=== PATIENT | male | born 1945 | race Caucasian/White ===

== ENCOUNTER 2019-05-17 14:52 | Observation (INO) ==
--- NOTE | 2019-05-17 15:46 | Emergency Department Note ---
Disposition Clinical Impression: Near syncope, Shortness of breath, TOTOIE (acute kidney injury) Hypotension Qualifiers: Hypotension type: unspecified hypotension type Qualified Code(s): I95.9 - Hypotension, unspecified Disposition: Admitted As Inpatient Condition: Good Time of Disposition: 20:45 General Adult HPI - General Chief complaint: ED Shortness of Breath/Dyspnea Stated complaint: low bp Time Seen by Provider: 05/17/19 15:13 Source: patient Nursing Notes Reviewed: Yes Vital Signs Reviewed: Yes - History of Present Illness HPI Narrative: 73-year-old male with history of hypertension, hyperlipidemia, diabetes who presents emergency Department with complaints of dizziness and shortness of breath. The patient states he has had long-standing shortness of breath for the past couple of weeks but he has had lightheadedness over the last 2 days. He co ntinues to have episodes of near syncope. Over the past several days he has had multiple episodes of significant diaphoresis, lightheadedness and shortness of breath which took approximately 15 minutes to dissipate after rest. He denied any chest pain at that time. He has intermittent diarrhea which he attributes to his metformin but otherwise denies any nausea, vomiting, current abdominal pain, headache, numbness or tingling. Pain Scale: 0 - Related Data Allergies Allergy/AdvReac Type Severity Reaction Status Date / Time No Known Allergies Allergy Verified 05/17/19 15:37 Review of Systems: ROS per history of present illness, all other systems reviewed and negative or normal. All systems ED: reviewed and negative except as stated. Review of Systems: As Per HPI Past Medical History - Past Medical History Attestation: Yes The following information was validated with the patient. Medical history: Reports: diabetes, hyperlipidemia - Social History Smoking Status: Never smoker Smokeless Tobacco Status: No Alcohol use: Reports: rarely Drug use: Reports: none Physical Exam General: Conversant. No apparent distress. Follow commands. Appears stated age. Neck: No JVD. Trachea midline. Neck supple. Eyes: PERRL. No scleral icterus. HENT: Normocephalic and atraumatic. Moist mucus membranes. Cardiovascular: Regular rate and rhythm. Normal S1 and S2. No murmurs appreciated. Normal capillary refill. Extremities well perfused with 2+ distal pulses bilaterally. No edema. Pulmonary: Normal and equal breath sounds bilaterally, anteriorly and posteriorly. No wheezes, rales, or rhonchi. Not in respiratory distress. Speaks in full sentences. Abdomen: Soft, nondistended, and tontender. No bruits or masses. No guarding. Neuro:Alert and oriented to person, place, and time. CN II-XII tested and grossly intact. No hemineglect. Speech is fluid and without slurring. There is mild flattening of the right nasolabial fold but states this is chronic and unchanged Sensory: Sensation intact to light touch in all extremities. Motor: Normal tone and bulk. No pronator drift. 5/5 strength in LUE 5/5 strength in RUE 5/5 strength in LLE 5/5 strength in RLE Skin: No rashes noted on visualized skin. Musculoskeletal: No bony abnormalities visualized. Moves all extremities. Psych: Normal mood. Pleasant. Makes appropriate eye contact. Course Vital Signs Temperature 97.7 F 05/17/19 14:54 Pulse Rate 98 05/17/19 14:54 Respiratory Rate 18 05/17/19 14:54 Blood Pressure 104/70 05/17/19 14:54 O2 Sat by Pulse Oximetry 95 05/17/19 14:54 Temperature 97.7 F 05/17/19 15:26 Pulse Rate 91 05/17/19 21:23 Respiratory Rate 18 05/17/19 21:23 Blood Pressure 137/82 05/17/19 21:23 O2 Sat by Pulse Oximetry 96 05/17/19 21:23 Oxygen Delivery Oxygen Delivery Room Air Medical Decision Making - [facility] Narrative Medical decision making narrative: 73-year-old male with history of hypertension, hyperlipidemia who presents the emergency department with complaints of near syncope several episodes as well as shortness of breath. The patient is difficult to obtain a history from and makes light of his issues therefore obtain history obtained predominantly by his . He was sent to the emergency department secondary to low blood pressures in the 90s at outside urgent care. his vital signs are stable upon arrival, blood pressure in the 110s systolic. Laboratory evaluation shows no significant leukocytosis or anemia. The patient has elevated creatinine which is unsure if this is the patient's baseline but he denies any history of CKD. The patient has no urinary tract infection. Chest x-ray shows no acute focal consolidation. CT head shows no evidence of acute intracranial pathology. Given the patient's lack of close follow-up as an outpatient and reluctance coming to physicians do believe he warrants further evaluation especially given his symptoms sound cardiac in origin. Discussed case with on-call hospitalist Dr. Rao who agrees with plan for admission and accepts the patient to the inpatient service. Patient agrees with and understands course of treatment plan including plan for admission. All questions answered. - Medical Records Medical records reviewed: Yes I reviewed the patient's medical records. - Lab Data Lab results reviewed: Yes I reviewed the patient's lab results. Result diagrams: 05/17/19 15:47 05/17/19 15:47 Lab Results 05/17/19 05/17/19 05/17/19 Range/Units 15:47 15:47 17:10 WBC 10.0 (4.3-11.1) K/mcL RBC 4.89 (4.19-5.50) M/mcL Hgb 15.0 (12.9-16.9) g/dL Hct 44.5 (37.5-50.1) % MCV 91.0 (83.0-100.0) fL MCH 30.7 (28.0-33.3) pg MCHC 33.7 (31.6-35.5) g/dL RDW 12.9 (11.5-14.5) % Plt Count 268 (140-400) K/mcL MPV 10.2 (9.4-12.4) fL Immature Gran % 0.8 (0-4) % Seg Neutrophils % 64.7 % Lymphocytes % 20.8 % Monocytes % 11.0 % Eosinophils % 2.1 % Basophils % 0.6 % Neutrophils # 6.5 (1.6-8.9) K/mcL Lymphocytes # 2.1 (0.6-4.6) K/mcL Monocytes # 1.1 (0.0-1.3) K/mcL Eosinophils # 0.2 (0.0-0.6) K/mcL Basophils # 0.1 (0.0-0.2) K/mcL Sodium 138 (136-145) mEq/L Potassium 4.4 (3.5-5.1) mEq/L Chloride 103 (98-107) mEq/L Carbon Dioxide 24 (23-29) mEq/L BUN 38 H (8-23) mg/dL Creatinine 1.99 H (0.70-1.30) mg/dL Est GFR ( Amer) 40 L (> 60) Est GFR (Non-Af Amer) 33 L (> 60) BUN/Creatinine Ratio 19 (6-26) Glucose 139 H (70-105) mg/dL Calculated Osmolality 297 (280-300) Calcium 10.4 H (8.6-10.3) mg/dL Magnesium 1.7 (1.6-2.6) mg/dL Troponin I 0.03 (< 0.04) ng/mL Urine Color Yellow (Yellow) Urine Clarity Clear (Clear) Urine pH 5.5 (5.0-8.0) pH Units Ur Specific [place] 1.030 H (1.010-1.025) Urine Protein Trace (Neg-Trace) mg/dL Urine Glucose (UA) 250 H (Normal) mg/dL Urine Ketones Negative (Negative) mg/dL Urine Blood Negative (Negative) Urine Nitrite Negative (Negative) Urine Bilirubin Small H (Negative) Urine Urobilinogen Normal (Normal) mg/dL Ur Leukocyte Esterase Trace H (Negative) Urine Microscopic RBC 0-3 (0-3) per hpf Urine Microscopic WBC 3-5 H (0-3) per hpf Ur Squamous Epith Cells Few (None-Few) per lpf Urine Bacteria None Seen (None-Few) per hpf Hyaline Casts Many H (None-Few) per lpf Ur Culture Indicated? YES A (NO) Specimen Rejected 05/17/19 Range/Units 17:10 WBC (4.3-11.1) K/mcL RBC (4.19-5.50) M/mcL Hgb (12.9-16.9) g/dL Hct (37.5-50.1) % MCV (83.0-100.0) fL MCH (28.0-33.3) pg MCHC (31.6-35.5) g/dL RDW (11.5-14.5) % Plt Count (140-400) K/mcL MPV (9.4-12.4) fL Immature Gran % (0-4) % Seg Neutrophils % % Lymphocytes % % Monocytes % % Eosinophils % % Basophils % % Neutrophils # (1.6-8.9) K/mcL Lymphocytes # (0.6-4.6) K/mcL Monocytes # (0.0-1.3) K/mcL Eosinophils # (0.0-0.6) K/mcL Basophils # (0.0-0.2) K/mcL Sodium (136-145) mEq/L Potassium (3.5-5.1) mEq/L Chloride (98-107) mEq/L Carbon Dioxide (23-29) mEq/L BUN (8-23) mg/dL Creatinine (0.70-1.30) mg/dL Est GFR ( Amer) (> 60) Est GFR (Non-Af Amer) (> 60) BUN/Creatinine Ratio (6-26) Glucose (70-105) mg/dL Calculated Osmolality (280-300) Calcium (8.6-10.3) mg/dL Magnesium (1.6-2.6) mg/dL Troponin I (< 0.04) ng/mL Urine Color (Yellow) Urine Clarity (Clear) Urine pH (5.0-8.0) pH Units Ur Specific [place] (1.010-1.025) Urine Protein (Neg-Trace) mg/dL Urine Glucose (UA) (Normal) mg/dL Urine Ketones (Negative) mg/dL Urine Blood (Negative) Urine Nitrite (Negative) Urine Bilirubin (Negative) Urine Urobilinogen (Normal) mg/dL Ur Leukocyte Esterase (Negative) Urine Microscopic RBC (0-3) per hpf Urine Microscopic WBC (0-3) per hpf Ur Squamous Epith Cells (None-Few) per lpf Urine Bacteria (None-Few) per hpf Hyaline Casts (None-Few) per lpf Ur Culture Indicated? (NO) Specimen Rejected Miscellaneous - Radiology Data Radiology results reviewed: Yes I reviewed the patient's radiology results. Chest X-Ray 05/17/19 15:33 IMPRESSION: No acute process. D/ / Max Aguilera MD / Max Aguilera MD Interpreting Provider: Max Aguilera MD - EKG Data EKG #1 EKG attestation: Yes I reviewed and interpreted this EKG. EKG results narrative: Normal sinus rhythm rate of 96. Normal axis. Normal intervals no acute ischemic changes. EKG also interpreted by myself Dr. Mae attending physician. Attestation Statement - Attestation Attestation: Dr. Mae note: Patient seen in conjunction with resident Dr. Vivas; please see her charting for complete documentation. Spent [id number] time with the patient and agree with the patient's treatment and disposition. No symptoms at this time. EKG and blood work unremarkable for acute coronary injury. Exertional dyspnea and diaphoresis twice in the last 3 days. Also vague lightheadedness and being off balance when standing from seated. No symptoms in the ER. Admitted and stabilized improved condition
[2019-05-17 16:07] LABS: Basophils # 0.1 K/mcL (0.0-0.2); Basophils % 0.6 %; Eosinophils # 0.2 K/mcL (0.0-0.6); Eosinophils % 2.1 %; Hematocrit 44.5 % (37.5-50.1); Immature Granulocytes % 0.8 % (0-4); Lymphocytes # 2.1 K/mcL (0.6-4.6); Lymphocytes % 20.8 %; Mean Corpuscular HGB Conc 33.7 g/dL (31.6-35.5); Mean Corpuscular Hemoglobin 30.7 pg (28.0-33.3); Mean Platelet Volume 10.2 fL (9.4-12.4); Monocytes # 1.1 K/mcL (0.0-1.3); Neutrophils # 6.5 K/mcL (1.6-8.9); Platelet Count 268 K/mcL (140-400); Red Blood Count 4.89 M/mcL (4.19-5.50); Red Cell Distribution Width 12.9 % (11.5-14.5); Segmented Neutrophils % 64.7 %
[2019-05-17] MEDS ORDERED: 0.9 % Sodium Chloride 1,000 ML IVC STA (16:24)
[2019-05-17 16:29] LABS: Calcium 10.4 mg/dL (8.6-10.3); Magnesium 1.7 mg/dL (1.6-2.6); Potassium 4.4 mEq/L (3.5-5.1); Troponin I 0.03 ng/mL (< 0.04)
[2019-05-17 17:29] LABS: Bilirubin,Urine Small (Negative); Blood,Urine Negative (Negative); Clarity,Urine Clear (Clear); Color,Urine Yellow (Yellow); Glucose,Urine (UA) 250 mg/dL (Normal); Ketones,Urine Negative (Negative); Leukocyte Esterase,Urine Trace (Negative); Nitrite,Urine Negative (Negative); PH,Urine 5.5 pH Units (5.0-8.0); Protein,Urine Trace mg/dL (Neg-Trace); Urobilinogen,Urine Normal (Normal)
[2019-05-17 17:31] LABS: Bacteria,Urine None Seen per hpf (None-Few); RBC,Urine 0-3 per hpf (0-3)
[2019-05-17 17:49] LABS: Hyaline Casts,Urine Many per lpf (None-Few)
[2019-05-17 17:50] LABS: Squamous Epithelial Cell,Urine Few per lpf (None-Few)
[2019-05-17] MEDS ORDERED: Acetaminophen 325 MG TABLET PO PRN (23:45)
[2019-05-17] MEDS ORDERED: D5% in Water 1,000 ML IVC PRN (23:45)
[2019-05-17] MEDS ORDERED: Morphine Sulfate 2 MG/ML SYRINGE IVP PRN (23:45)
[2019-05-17] MEDS ORDERED: *HR* Dextrose 50 % in Water (Syg) 50 ML SYRINGE IVP PRN (23:45)
[2019-05-17] MEDS ORDERED: Dextrose Gel 15 GM/37.5 ML TUBE PO PRN ×2 (23:45)
[2019-05-17] MEDS ORDERED: Naloxone 0.4 MG/ML INJ IVP PRN (23:45)
[2019-05-18] MEDS: 0.9 % Sodium Chloride 1,000 ML IVC SCH ×2 (00:06→17:57)
[2019-05-18] MEDS: Insulin LISPRO 300 UNITS/3 ML VIAL SQ SCH ×4 (00:11→17:57)
--- NOTE | 2019-05-18 01:20 | Internal Med History&Physical ---
Date of Encounter: 05/17/19 Time of Encounter: 23:05 Internal Medicine - H&P: HPI Chief complaint: near syncope; exertional chest pain and SOB Admitted From: Emergency Dept Plans for Post Hospital Care: Home History of present illness: Mr. Hyde is a 73 year old male who presents with complaints of lightheadedness, dizziness, near syncopal spells, low blood pressure recordings, and complaints of exertional chest pain and dyspnea. He was seen in the urgent care in [place] and referred to ER for the above complaints. He reports his blood pressure was as low as 60s systolic earlier today, but I find no document ation of that. He denies any syncope. However, he feels as though he was going to pass out earlier today. He describes about a 3 month history of exertional chest pain and dyspnea often relieved by rest. He denies any prior history of heart disease or heart attack. Workup in the ER was unremarkable except for kidney injury presumed to be acute. There are no old labs, however. Upon my assessment of the patient, he has no symptoms at the present time. He reports and confirms all the above symptoms to me. I reviewed his EKG and note that he had Q waves inferiorly suggesting an old inferior [place]. He denies any prior history of [place] or heart problems. He is diabetic and takes metformin. H owever, he denies any episodes of hypoglycemia. He states his glucose control is usually in the normal range to 120s. He denies any fever, cough, congestion, vomiting, or diarrhea. Past Med Surg Social Fam HX - Past Medical History Attestation: Yes The following information was validated with the patient. Source: patient Medical history: diabetes, hyperlipidemia, hypertension Psychiatric history: no psych history - Past Surgical History Surgical History: no surgical history - Social History Smoking Status: Never smoker Smokeless Tobacco Status: No Alcohol use: rarely Drug use: none Current living situation: Home Activity Level: Independent ambulation - Family History Mother Living Status: Father Living Status: Age at : 79 Internal Medicine - H&P: Meds Allergy/AdvReac Type Severity Reaction Status Date / Time No Known Allergies Allergy Verified 05/17/19 15:37 - Constitutional Constitutional: excessive sweating, no chills, no fever(s), no night sweats, no weight gain, no weight loss - EENT Eyes: no blurry vision, no change in vision Ears: no ear pain, no tinnitus Nose, mouth and throat: no nasal congestion, no sore throat - Cardiovascular Cardiovascular ROS IM: chest pain, dyspnea on exertion, lightheadedness, no irregular heart rhythm, no paroxysmal nocturnal dyspnea, no syncope - Respiratory Respiratory: dyspnea on exertion, no cough, no dyspnea, no hemoptysis, no pain on inspiration, no chest congestion, no excessive phlegm production, no change in phlegm color - Gastrointestinal Gastrointestinal: no abdominal pain, no diarrhea, no hematemesis, no hematochezia, no melena, no nausea, no vomiting - Genitourinary Genitourinary ROS male: no dysuria, no flank pain, no hematuria - Musculoskeletal Musculoskeletal ROS IM: no arthralgias, no back pain - Integumentary Integumentary IM: no rash, no jaundice - Neurological Neurological ROS: dizziness, no disequilibrium, no focal weakness, no frequent falls, no headache(s), no weakness - Psychiatric Psychiatric: no anxiety, no depression - Endocrine Endocrine IM: no cold intolerance, no heat intolerance, no polydipsia, no polyphagia, no polyuria - Allergic/Immunologic Allergic/Immunologic: no wheezing, no GI upset with certain foods - Constitutional Vitals: Temp Pulse Resp BP Pulse Ox 98.1 F 89 14 131/80 96 05/17/19 22:37 05/17/19 22:37 05/17/19 22:37 05/17/19 22:37 05/17/19 22:37 General appearance: Present: cooperative, A&O X 3, pleasant, no acute distress, answers questions appropriately Exam: see below - Head Head exam: Present: atraumatic, normal inspection - Eye Eye exam: Present: EOMI, PERRL. Absent: scleral icterus Pupils: Present: normal accommodation - ENT ENT exam: Present: mucous membranes dry, normal exam, normal oropharynx - Neck Neck exam general surgery: Present: full ROM, supple, trachea midline. Absent: tenderness, nuchal rigidity, thyromegaly - Respiratory Respiratory exam: Present: CTAB. Absent: chest wall tenderness, rales, respiratory distress, rhonchi, wheezes - Cardiovascular Cardiovascular exam: Present: distant heart sounds, RRR, +S1, +S2. Absent: diastolic murmur, systolic murmur - GI/Abdominal GI/Abdominal exam: Present: normal bowel sounds, soft. Absent: guarding, hepatomegaly, mass, rebound, splenomegaly, tenderness - Extremities Exam Extremities exam: Present: full ROM, normal capillary refill, warm, radial pulses palpable and symmetrical. Absent: calf tenderness, joint swelling, pedal edema, tenderness - Back Exam Back exam: Present: normal inspection. Absent: CVA tenderness (L), CVA tenderness (R) - Neurological Exam Neurological exam: Present: alert, CN II-XII intact, oriented X3, no focal deficits, strengths equal and symetr throughout - Psychiatric Psychiatric exam: Present: normal affect, normal mood - Skin Skin exam: Present: dry, intact, warm Internal Med - H&P Results - Labs CBC & Chem 7: 05/17/19 15:47 05/17/19 15:47 Labs: Short CBC 05/17/19 Range/Units 15:47 WBC 10.0 (4.3-11.1) K/mcL Hgb 15.0 (12.9-16.9) g/dL Hct 44.5 (37.5-50.1) % Plt Count 268 (140-400) K/mcL Neutrophils # 6.5 (1.6-8.9) K/mcL BMP 05/17/19 15:47 Sodium 138 Potassium 4.4 Chloride 103 Carbon Dioxide 24 BUN 38 H Creatinine 1.99 H Glucose 139 H Calcium 10.4 H Cardiac Enzymes 05/17/19 Range/Units 15:47 Troponin I 0.03 (< 0.04) ng/mL Urine 05/17/19 Range/Units 17:10 Urine Color Yellow (Yellow) Urine Clarity Clear (Clear) Urine pH 5.5 (5.0-8.0) pH Units Ur Specific [place] 1.030 H (1.010-1.025) Urine Protein Trace (Neg-Trace) mg/dL Urine Glucose (UA) 250 H (Normal) mg/dL - EKG Data -: EKG Interpreted by Myself - EKG Data Prior EKG available for review: no EKG comments: 05/18/19 01:25 Q waves inferiorly suggesting old inferior [place]; no acute ST-T changes - Impressions ITS Impressions Chest X-Ray 05/17/19 15:33 IMPRESSION: No acute process. D/ / Max Aguilera MD / Max Aguilera MD Interpreting Provider: Max Aguilera MD Head CT 05/17/19 17:33 IMPRESSION: No acute intracranial abnormality. D/ / Max Aguilera MD / Max Aguilera MD Interpreting Provider: Max Aguilera MD - Diagnostic Studies Chest x-ray Status: image reviewed by me (negative) - Assessment and Plan (1) Near syncope Current Visit: Yes Status: Acute Assessment and plan: 1. Will trend troponins, EKG's, monitor on telemetry. 2. Order ECHO and stress testing given cardiac complaints. 3. Monitor BP and glucose closely. 4. Home med list unavailable but patient reports he takes "too much medication" which makes him feel that way. 5. Need to obtain and verify med list; minimize medications. (2) Exertional dyspnea Current Visit: Yes Status: Acute Assessment and plan: 1. Work up as above. 2. Cardiac stress testing and cardiology consult if stress abnormal. (3) Type 2 diabetes mellitus Current Visit: Yes Status: Chronic Assessment and plan: 1. Hold metformin. 2. Monitor glucose closely and will use SSI PRN. Qualifiers: Diabetes mellitus ferry terminal agent insulin use: without group home use Diabetes mellitus complication status: without complication Qualified Code(s): E11.9 - Type 2 diabetes mellitus without complications (4) TOOTIE (acute kidney injury) Current Visit: Yes Status: Acute Assessment and plan: 1. Hydrate with IVF's. 2. Monitor renal function and consult nephrology if function does not improve. 3. Need to obtain home med list; avoid nephrotoxic medications. 4. Order renal ulutrasound. (5) DVT prophylaxis Current Visit: Yes Status: Acute Assessment and plan: 1. Heparin SQ.
[2019-05-18 01:32] LABS: Basophils # 0.1 K/mcL (0.0-0.2); Basophils % 0.8 %; Eosinophils # 0.2 K/mcL (0.0-0.6); Eosinophils % 3.6 %; Hematocrit 39.9 % (37.5-50.1); Immature Granulocytes % 0.5 % (0-4); Lymphocytes # 2.3 K/mcL (0.6-4.6); Lymphocytes % 34.9 %; Mean Corpuscular HGB Conc 33.6 g/dL (31.6-35.5); Mean Corpuscular Hemoglobin 30.9 pg (28.0-33.3); Mean Corpuscular Volume 91.9 fL (83.0-100.0); Mean Platelet Volume 10.2 fL (9.4-12.4); Monocytes # 0.7 K/mcL (0.0-1.3); Monocytes % 10.4 %; Neutrophils # 3.2 K/mcL (1.6-8.9); Platelet Count 219 K/mcL (140-400); Red Blood Count 4.34 M/mcL (4.19-5.50); Segmented Neutrophils % 49.8 %; White Blood Count 6.4 K/mcL (4.3-11.1)
[2019-05-18 01:33] LABS: Hemoglobin 13.4 g/dL (12.9-16.9)
[2019-05-18 01:39] LABS: Prothrombin Time 11.7 Seconds (9.4-12.1)
[2019-05-18 01:42] LABS: Activated Partial Thrombo Time 28.7 Seconds (26.0-36.0)
[2019-05-18 01:55] LABS: Albumin 3.9 g/dL (3.5-5.7); Albumin/Globulin Ratio 1.6 (1.1-2.2); Bilirubin,Total 0.4 mg/dL (0.3-1.0); Globulin 2.4 g/dL (2.4-3.5); Magnesium 1.5 mg/dL (1.6-2.6); Total Protein 6.3 g/dL (6.4-8.9)
[2019-05-18] MEDS: *HR* Heparin 5,000 UNIT/ML VIAL SQ SCH ×2 (05:43→17:58)
[2019-05-18] MEDS: Aspirin 81 MG TAB.CHEW PO SCH (09:52)
[2019-05-18 10:50] LABS: Estimated Average Glucose 180 mg/dl
--- NOTE | 2019-05-18 12:37 | Electrocardiograph Report ---
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
--- NOTE | 2019-05-18 12:46 | Electrocardiograph Report ---
[place] [address] Test Date: 2019-05-17 Pat Name: Kevin Hyde Department: [id number] Room: 3B22 Gender: M Building Maintenance Mechanic: : 1945 Requested By: Melanie Vivas Order Number: [id number] Reading MD: Vanessa Moon Measurements Intervals [place] Rate: 96 P: 60 NH: 149 QRS: 80 QRSD: 107 T: 59 QT: 355 QTc: 449 Interpretive Statements Sinus rhythm Probable inferior infarct, old Electronically Signed On 05-18-2019 12:44:29 EDT by Vanessa Moon
[2019-05-18] MEDS ORDERED: Dextrose Gel 15 GM/37.5 ML TUBE PO PRN ×2 (13:46)
[2019-05-18] MEDS ORDERED: D5% in Water 1,000 ML IVC PRN (13:46)
[2019-05-18] MEDS ORDERED: *HR* Dextrose 50 % in Water (Syg) 50 ML SYRINGE IVP PRN (13:46)
--- NOTE | 2019-05-18 15:04 | Event Note ---
Date of Encounter: 05/18/19 Time of Encounter: 15:02 73-year-old male presented with presyncope. Echocardiogram and stress test were unremarkable. Patient also has TOOTIE, receiving IV fluid currently. We will continue monitor renal function panel, consult renal if indicated. Pending carotid Doppler.
[2019-05-18] MEDS ORDERED: Insulin LISPRO 300 UNITS/3 ML VIAL SQ SCH (21:00)
[2019-05-19 05:22] LABS: Basophils # 0.1 K/mcL (0.0-0.2); Basophils % 0.9 %; Eosinophils # 0.3 K/mcL (0.0-0.6); Eosinophils % 5.5 %; Hematocrit 40.7 % (37.5-50.1); Hemoglobin 13.5 g/dL (12.9-16.9); Immature Granulocytes % 0.5 % (0-4); Lymphocytes # 2.1 K/mcL (0.6-4.6); Lymphocytes % 37.5 %; Mean Corpuscular HGB Conc 33.2 g/dL (31.6-35.5); Mean Corpuscular Hemoglobin 30.9 pg (28.0-33.3); Mean Corpuscular Volume 93.1 fL (83.0-100.0); Mean Platelet Volume 10.3 fL (9.4-12.4); Monocytes # 0.6 K/mcL (0.0-1.3); Monocytes % 10.4 %; Neutrophils # 2.6 K/mcL (1.6-8.9); Platelet Count 227 K/mcL (140-400); Red Blood Count 4.37 M/mcL (4.19-5.50); Red Cell Distribution Width 12.7 % (11.5-14.5); Segmented Neutrophils % 45.2 %; White Blood Count 5.7 K/mcL (4.3-11.1)
[2019-05-19 05:38] LABS: BUN/Creatinine Ratio 24 (6-26); Blood Urea Nitrogen 27 mg/dL (8-23); Carbon Dioxide 25 mEq/L (23-29); Chloride 106 mEq/L (98-107); Glucose 116 mg/dL (70-105); Osmolality,Calculated 290 (280-300); Potassium 4.2 mEq/L (3.5-5.1); Sodium 137 mEq/L (136-145); eGFR For African Americans > 60 (> 60); eGFR For Non-African Americans > 60 (> 60)
[2019-05-19] MEDS: *HR* Heparin 5,000 UNIT/ML VIAL SQ SCH (06:07)
[2019-05-19] MEDS: Insulin LISPRO 300 UNITS/3 ML VIAL SQ SCH (08:37)
[2019-05-19] MEDS: Aspirin 81 MG TAB.CHEW PO SCH (08:39)
--- NOTE | 2019-05-19 09:31 | Discharge Summary ---
- NOTES TO OUTPATIENT PROVIDER Notes to Outpatient Provider: f/u with PCP within 2 weeks. F/u with pulmonology within a month for dyspnea and PFT. Orders not resulted at time of discharge: Pending orders 05/17/19 18:58 Culture,Urine [RM] Stat 05/17/19 23:49 NM dale perf SPECT multi [NM] Routine Date of Encounter: 05/19/19 Time of Encounter: 09:29 - Discharge Diagnosis (1) Near syncope Priority: Primary Status: Acute (2) TOOTIE (acute kidney injury) Priority: Primary Status: Acute (3) Exertional dyspnea Priority: Primary Status: Acute (4) DVT prophylaxis Priority: Primary Status: Acute (5) Type 2 diabetes mellitus Priority: Secondary Status: Chronic Qualifiers: Diabetes mellitus bar porter insulin use: without shelter use Diabetes mellitus complication status: without complication Qualified Code(s): E11.9 - Type 2 diabetes mellitus without complications Hospital course: Mr. Hyde is a 73 year old male who presents with complaints of lightheadedness, dizziness, near syncopal spells, low blood pressure recordings, and complaints of exertional chest pain and dyspnea. He was seen in the urgent care in [place] and referred to ER for the above complaints. He reports his blood pressure was as low as 60s systolic earlier today. He describes about a 3 month history of exertional chest pain and dyspnea often relieved by rest. He denies any prior history of heart disease or heart attack. Serial troponin was negative, EKG has no acute ST-T change, labs revealed acute renal injury with creatinine at 1.99, hemoglobin A1c 7.9, urinalysis showed specific gravity 1.030, which indicates severe dehydration. Patient does not take any medication at home. Although patient reported history of hypertension, his blood pressure was well controlled even without any medications while in the hospital. An echocardiogram was performed which revealed LV normal ejection fraction without obvious valvular disease. A stress test was negative for ischemia or infarct. Carotid Doppler showed nonstenotic plaque. Patient symptoms have improved with IV hydration. Acute renal injury has resolved. Patient has history of diabetes but does not take any medications or insulin, which could have contributed to his dehydration. We will start pt on Januvia and Invokona, he will f/u with PCP to continue care for DM. Pt will be discharged home today. Discharge discussed with: patient Time spent discussing smoking cessation with patient: more than 10 minutes - Time Spent with Patient Total time spent providing and/or coordinating discharge services: Time spent: Greater than 30 minutes - Discharge Medications Prescriptions: New Canagliflozin [Invokana] 100 mg PO BID #60 tablet SitaGLIPtin [Januvia] 25 mg PO DAILY #30 tablet Home Medications: Canagliflozin [Invokana] 100 mg PO BID #60 tablet 05/19/19 [Rx] SitaGLIPtin [Januvia] 25 mg PO DAILY #30 tablet 05/19/19 [Rx] Allergies/Adverse Reactions: Allergy/AdvReac Type Severity Reaction Status Date / Time No Known Allergies Allergy Verified 05/17/19 15:37 Date of admission: 05/17/19 20:38 Primary care physician: PCP NONE Anticipated date of discharge: 05/19/19 - Constitutional Vitals: Temp Pulse Resp BP Pulse Ox 98.1 F 77 16 113/74 98 05/19/19 07:25 05/19/19 07:25 05/19/19 07:25 05/19/19 07:25 05/19/19 07:25 General appearance: Present: cooperative, A&O X 3, pleasant, no acute distress, answers questions appropriately Exam: PHYSICAL EXAMINATION: GENERAL APPEARANCE: The patient is alert, oriented and in no acute distress. HEENT: Head is normocephalic. The sinuses are nontender. Pupils are equal and reactive. The nares are patent. Oropharynx clear without lesions. NECK: Supple without lymphadenopathy. HEART: Regular rate and rhythm. LUNGS: No crackles or wheezes are heard. ABDOMEN: Soft, nontender, nondistended with good bowel sounds heard. Inguinal area is normal. EXTREMITIES: Without cyanosis, clubbing or edema. NEUROLOGICAL: Gross nonfocal. SKIN: Warm and dry without any rash. - Patient Status Disposition: Home, Self-Care Condition: Good Functional capacity at discharge: independent ambulation Overall status at discharge: patient is progressing back to baseline - Discharge Instructions Follow Up With: Minor Jama DO [Partnered Physician] - 06/02/19 3:00 pm - Diet and Activity Activity: increase activity as tolerated Diet: diabetic diet, low fat, low cholesterol, low salt diet
[2019-05-19 11:57] VITALS: BP 127/76
[2019-05-19 12:48] LABS: Thyroid Stimulating Hormone 1.246 mcIU/mL (0.340-5.600)
== END 2019-05-19 16:45 | disposition home or self-care (01) ==
LOC: 3BNU 14:52 → EMEROOARM 14:52 → 3BNU 22:18
PROVIDERS: ADMIT Family Medicine; ATTEND Family Medicine